=== PATIENT | male | born 1950 ===

== ENCOUNTER 2018-07-26 11:17 | Emergency (ER) | payer SELFPAY ==
[2018-07-26 11:30] VITALS: BMI 28.1
[2018-07-26 11:32] VITALS: BP 149/81; PULSE 77; RESP 17; TEMP 98.9; O2SAT 98
--- NOTE | 2018-07-26 12:56 | ED PDOC ---
HPI: Wound Care - HPI Time Seen by Provider: 07/26/18 12:09 Chief Complaint (Nursing): Wound Check Chief Complaint (Provider): wound check History Per: Patient Exam Limitations: no limitations Onset/Duration Of Symptoms: Days (6 months) Current Symptoms Are (Timing): Still Present Location Of Injury: Right: Head (right eyebrow) Additional Complaint(s): Vikram Dupont is a 68 year old male, with no significant past medical history, who presents to the emergency department for evaluation of a nonhealing wound from prior laceration of right eyebrow. Patient states he injured himself x5 years ago, he had stitches placed but admits removing the stitches on his own and never got it evaluated. Patient reports x6 months ago he noticed clear drainage and states wound reopened, since that time the wound hasn't healed and continues to drain clear fluid intermittently. Patient further states he had a medical check-up x2 weeks ago and was referred to the ER for further treatment of the nonhealing wound. He has only been using antibiotic ointment. He denies any fever, chills, purulent drainage, visual disturbance, ear pain or other medical complaints. PMD: Clinic Past Medical History Reviewed: Historical Data, Nursing Documentation, Vital Signs Vital Signs: Last Vital Signs Temp 98.9 F 07/26/18 11:30 Pulse 77 07/26/18 11:30 Resp 17 07/26/18 11:30 BP 149/81 07/26/18 11:30 Pulse Ox 98 07/26/18 11:30 - Medical History PMH: No Chronic Diseases - Surgical History Surgical History: No Surg Hx - Family History Family History: States: Unknown Family Hx - Social History Current smoker - smoking cessation education provided: Yes (heavy smoker >10 cigarettes daily) Alcohol: Social Drugs: Denies - Allergies Allergies/Adverse Reactions: Allergies Allergy/AdvReac Type Severity Reaction Status Date / Time No Known Allergies Allergy Verified 07/26/18 12:08 Review of Systems ROS Statement: Except As Marked, All Systems Reviewed And Found Negative Constitutional: Negative for: Fever, Chills Eyes: Negative for: Vision Change ENT: Positive for: Other (right eyebrow nonhealing wound). Negative for: Ear Pain Physical Exam - Reviewed Nursing Documentation Reviewed: Yes Vital Signs Reviewed: Yes - Physical Exam Appears: Positive for: Well, No Acute Distress Head Exam: Positive for: ATRAUMATIC Skin: Positive for: Normal Color, Warm, Dry Eye Exam: Positive for: Normal appearance, EOMI, PERRL ENT: Positive for: Other (Above right eyebrow approximately 0.5cm opening at prior eyebrow laceration site with keloid formation around opening. Serosanguineous able to be expressed intermittently, no purulent drainage or erythema noted.). Negative for: Pharyngeal Erythema, Tonsillar Exudate, Tonsillar Swelling Extremity: Positive for: Normal ROM (upper and lower extremities). Negative for: Deformity, Swelling Neurologic/Psych: Positive for: Alert, Oriented. Negative for: Motor/Sensory Deficits - ECG O2 Sat by Pulse Oximetry: 98 (RA) Pulse Ox Interpretation: Normal Procedure: Wound Repair - Consent Obtained Consent obtained: Verbal - Performed by Performed by: Mid-level Provider - Location Location:: Right, Eyebrow Dimensions Length cm: 0.5 - Complexity Complexity:: Simple (one layer) - Wound repair method Grover:: Steri-strips - Patient tolerated procedure Patient Tolerated Procedure:: Well Medical Decision Making Medical Decision Making: Time: 12:09 Initial Impression: Wound check Initial Plan: 12:15 Steri-strip placed and wound cultured. Patient advised that closure with suture at this point isn't recommended because to the increased risk of infection due to time period since laceration occurred. Patient instructed that steri-strips will fall off and to continue using Bacitracin on wound. Patient advised it is possible that suture material may have been left, potentially causing wound to reopen and the body will need to expel it on its own. 12:55 At this time patient requires no further treatment in the ED and is medically stable for discharge home. Counseling was provided and all questions were answered regarding diagnosis. There is an agreement to discharge plan. Scribe Attestation: Documented by Oziel Carroll, acting as a scribe for Patricia Baarhona PA-C. Provider Scribe Attestation: All medical record entries made by the Scribe were at my direction and personally dictated by me. I have reviewed the chart and agree that the record accurately reflects my personal performance of the history, physical exam, medical decision making, and the department course for this patient. I have also personally directed, reviewed, and agree with the discharge instructions and disposition. Disposition - Clinical Impression Clinical Impression: Open wound of eyebrow - Disposition [facility]errals: [facility] [Outside] Disposition: Routine/Home Disposition Time: 12:55 Condition: STABLE Additional Instructions: F/u with a primary care doctor for further treatment. Steri-strips will fall off on their own, do not pull them off. You can wash the area gently with soap and water tomorrow. Use Bacitracin once steri-strips fall off. Return to ER if you develop fevers/chills or drainage of pus from the area. Forms: [employer] ([place]), [employer] ([place]) Print Language: [place]
== END 2018-07-26 13:08 | disposition home or self-care (01) ==
LOC: H.ER 11:17
DX: T81.89XA Other complications of procedures, not elsewhere classified, initial encounter (principal); S01.111D Laceration without foreign body of right eyelid and periocular area, subsequent encounter; X58.XXXD Exposure to other specified factors, subsequent encounter; F17.210 Nicotine dependence, cigarettes, uncomplicated; S09.90XA Unspecified injury of head, initial encounter